=== PATIENT | female | born 1945 | race Caucasian/White ===

== ENCOUNTER 2016-07-20 07:22 | Day surgery (SDC) | payer MEDICARE, OTHER ==
[2016-07-17 13:26] VITALS: BMI 24.8
[~2016-07-20] VITALS: Ht 152.4 cm; Wt 58.1 kg
[2016-07-20] VITALS (10 sets, daily range): BP systolic 98–124; BP diastolic 42–67; PULSE 65–80; RESP 16–22; Ht 152.4 cm; Wt 58.1 kg
[~2016-07-20 07:22] MED LIST: CEFAZOLIN 1 GM INJ ONE; PROPOFOL 200 MG INJ ONE
[2016-07-20] MEDS ORDERED: CEFAZOLIN 1 GM/50 ML (PMX) 50 ML IVPB ONE (07:30)
[2016-07-20] MEDS ORDERED: POLYMYXIN/BACITRACIN 1L IRRIG ONE (09:11)
[2016-07-20] MEDS ORDERED: BUPIVACAINE 0.5% (SDV) 30 ML INJ ONE (09:11)
[2016-07-20] MEDS ORDERED: PROPOFOL 20 ML ONE (09:22)
[2016-07-20] MEDS ORDERED: LIDOCAINE 2% (SDV) 5 ML INJ ONE (09:22)
[2016-07-20] MEDS ORDERED: MIDAZOLAM 1 MG/ML 2 ML INJ ONE (09:24)
[2016-07-20] MEDS ORDERED: FENTAnyl 50 MCG/ML VIAL ONE (09:24)
[2016-07-20] MEDS ORDERED: LIDOCAINE 2% (MDV) 20 ML INJ ONE (09:25)
[2016-07-20] MEDS ORDERED: MEPERIDINE 25 MG INJ IV PRN (09:30)
[2016-07-20] MEDS ORDERED: LABETALOL HCL 20MG INJ IV PRN (09:30)
[2016-07-20] MEDS ORDERED: FENTAnyl 50 MCG/ML VIAL IV PRN ×3 (09:30)
[2016-07-20] MEDS ORDERED: OXYCODONE/ACETAMINOPHEN (5/325) TAB PO PRN (09:30)
[2016-07-20] MEDS ORDERED: HYDROmorphONE (0.2 MG/ML) 10ML SYG IV PRN ×3 (09:30)
[2016-07-20] MEDS ORDERED: ONDANSETRON 4 MG INJ IV PRN (09:30)
[2016-07-20] MEDS ORDERED: DEXAMETHASONE 4 MG/ML 1 ML INJ ONE (10:14)
--- NOTE | 2016-07-20 10:41 | OPR ---
Date/Time of Note Date/Time of Note DATE: 07/20/16 TIME: 10:40 Operative Report Procedure Date: Jul 20, 2016 Preoperative Diagnosis Right foot painful bunion deformity Right first MPJ DJD Right foot pain Postoperative Diagnosis Right foot painful bunion deformity Right first MPJ DJD Right foot pain Operation Performed Right foot bunionectomy with internal fixation Anesthesia: MAC Estimated Blood Loss: minimal Specimens Bone right foot Complications: None Pt Condition Post Procedure: stable Disposition: PACU Indications This is a pleasant 71-year-old female patient who has been suffering with painful right foot bunion deformity for the past several years, worsened for the past year. 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 Patient has failed the following treatments: Shoe gear modification, activity modification, NSAIDs, pain medication, prescription pain medication. Patient seeks surgical management. Recommended procedure: Right foot bunionectomy. Risks and complications of this type of surgery was discussed with patient in great detail. Risks and complications discussed included, but are not limited to , postoperative infection, postoperative pain, hardware failure, malunion, nonunion, delayed union, failure of surgery to correct the problem, need for additional surgical procedures, deep venous thrombosis, limb loss and loss of life. Patient understands the discussion and agrees to the procedure. An informed consent was signed, obtained and placed in the chart. No guarantees or warrantees was given or implied as to the outcome of the procedure either in verbal or written form. Operative Findings Moderate to severe hallux abductovalgus deformity with 50% of cartilage missing from both the head of the first metatarsal and base of the proximal phalanx. Osteophytic changes surrounding the first metatarsophalangeal joint of the right foot. Procedure Description Procedure in detail: The patient was brought into the operating room and was placed on the operating table in the supine position. General anesthesia was administered to the patient by the anesthesiologist. A pneumatic ankle tourniquet was applied to the right ankle. All bony prominences were padded probably. A timeout was called by the circulating nurse. The correct site of surgery was identified. All instrumentation was checked. All necessary preoperative medications have been administered. The right foot was scrubbed, prepped and draped in the usual aseptic manner. An Esmarch bandage was utilized to exsanguinate the foot and the pneumatic ankle tourniquet was inflated to 250 mmHg pressure. Procedure #1: Right foot bunionectomy with internal fixation Attention was directed to the right foot: A dorsal medial 6 cm incision was made using a #15 blade over the first metatarsophalangeal joint. The incision was deepened through subcutaneous layer using sharp and blunt dissection. Care was taken to identify and protect vital neurovascular structures. A capsulotomy was performed using a #15 blade. The joint capsule was dissected off of the head of the first metatarsal and base of the proximal phalanx exposing the metatarsophalangeal joint. Extensive bony osteophytes were present which were removed using a rongeur. The medial bony prominence was cut using a power saw. A Chevron type osteotomy was made at the head of the first metatarsal and the capital fragment was translated laterally to the desired position. An 18 mm cannulated 3.0 headless screw was inserted for fixation using lag technique. Excess medial bone was cut using a power saw. All rough edges were smoothed using a power rasp. The wound was flushed with copious amounts of sterile normal saline. There was increase in dorsiflexion postoperatively. The joint capsule was then closed using 3-0 Vicryl suture. The subcutaneous layer was closed using 4-0 Vicryl suture and the skin was closed using 5-0 Monocryl subcuticular stitch pattern. Steri- Strips were applied. Postoperative injection was given 0.5% Marcaine. Sterile dressing was applied. The pneumatic ankle tourniquet was deflated at this time and prompt hyperemic response was noted to digits of the right foot. The patient tolerated the procedure and anesthesia well. She was transferred to the recovery room with vital signs stable and vascular status intact to the right foot. Patient will be discharged home after postoperative monitoring. Postoperative orders have been written. Patient will be followed up in 1 week. OVIDIO YANEZ DPM Jul 20, 2016 10:41
--- NOTE | 2016-07-20 12:06 | RADRPT ---
PROCEDURE: XR Right Foot. CLINICAL INDICATION: Right foot pain. Postop. TECHNIQUE: Three views. Frontal, lateral, and oblique. COMPARISON: None. FINDINGS: There has been recent surgery with osteotomy of the medial aspect of the first metatarsal distally. A single cannulated screw is noted at this site. Alignment is satisfactory. There is gas in the s oft tissues at this site related to the recent surgery. There are degenerative changes of the first metatarsal phalangeal joint with joint space narrowing a nd osteophytes. The articular surfaces are otherwise intact. There is no lytic or blastic lesion. IMPRESSION: 1. Satisfactory postoperative appearance of the right foot. RPTAT: QQ .Reza Lira MD, MD Date Time Electronically viewed and signed by .Reza Lira MD, MD on 07/20/2016 12:06 .R/
== END 2016-07-20 12:45 | disposition home or self-care (01) ==
LOC: SDS 07:22
PROVIDERS: ATTEND Podiatrist Foot & Ankle Surgery
DX: M21.611 Bunion of right foot (principal)
CPT/HCPCS: 28299; 73630; 88304; 88311; C1713; J0690; J1100; J2250; J3010; L3260